=== PATIENT | female | born 1995 | race Two or more races ===

== ENCOUNTER 2022-04-04 05:53 | Emergency (ER) | payer MEDICAID ==
[~2022-04-04] VITALS: Ht 160 cm; Wt 68.0 kg
[2022-04-04 06:07] VITALS: BP 114/78
[2022-04-04 06:53] LABS: Urine WBC None Seen /hpf (0 - 5)
[2022-04-04 07:12] LABS: Potassium 3.5 mmol/L (3.5-5.1)
[2022-04-04 07:13] LABS: Salicylate < 1.7 mg/dL (2.8-20.0)
[2022-04-04 07:17] LABS: Basophils # (auto) 0.1 10 ^3/uL (0-0.2); Basophils % (auto) 0.8 % (0.0-2.0); Eosinophils # (auto) 0 10 ^3/uL (0-0.8); Eosinophils % (auto) 0.6 % (0.0-7.0); Hematocrit 37.2 % (36.0-46.0); Hemoglobin 12.4 g/dL (12.2-16.2); Lymphocytes # (auto) 1.8 10 ^3/uL (0.4-5.4); Lymphocytes % (auto) 25.9 % (10.0-50.0); Mean Corpuscular Hemoglobin 28.8 pg (28.0-32.0); Mean Corpuscular Hgb Conc. 33.2 g/dL (32.0-36.0); Mean Corpuscular Volume 86.8 fL (80.0-100.0); Monocytes # (auto) 0.3 10 ^3/uL (0-1.3); Monocytes % (auto) 4.6 % (0.0-12.0); Neutrophils # (auto) 4.8 10 ^3/uL (1.6-8.6); Neutrophils % (auto) 68.1 % (37.0-80.0); Red Blood Cells 4.29 10^6/uL (4.0-5.20); Red Cell Distribution Width 14.8 % (11.8-14.3); White Blood Cell 7.1 10^3/uL (4.4-10.8)
[2022-04-04 07:19] LABS: Albumin 3.8 g/dL (3.4-5.0); BUN/Creatinine Ratio 20.9; Bilirubin, Total 0.2 mg/dL (0.2-1.0); Calcium 8.5 mg/dL (8.5-10.1); Total Protein 7.5 g/dL (6.4-8.2)
[2022-04-04 07:21] LABS: Amphetamine Screen, Urine NEGATIVE (NEGATIVE); Barbiturate Scree,Urine NEGATIVE (NEGATIVE); Benzodiazephine Screen, Urine NEGATIVE (NEGATIVE); Cannabinoid Screen, Urine NEGATIVE (NEGATIVE); Cocaine Screen, Urine NEGATIVE (NEGATIVE); Opiate Scree,Urine NEGATIVE (NEGATIVE); Phencyclidine Screen, Urine NEGATIVE (NEGATIVE)
[2022-04-04 08:07] LABS: Acetaminophen < 2.0 ug/mL (10-30)
[2022-04-04 08:08] LABS: Urine Bacteria NONE SEEN /hpf (None Seen); Urine Blood Negative /uL (Negative); Urine Specific Gravity 1.003 (1.001-1.035)
== END 2022-04-04 07:41 | disposition left against medical advice (07) ==
LOC: EDUNIT# 05:53 → EDBD 05:53 → ER 05:53
DX: R44.3 Hallucinations, unspecified (principal); R94.31 Abnormal electrocardiogram [ECG] [EKG]; Z53.21 Procedure and treatment not carried out due to patient leaving prior to being seen by health care provider
CPT/HCPCS: 36415; 80053; 80307; 80329; 81001; 84484; 85025; 93005

== ENCOUNTER 2022-07-28 01:29 | Emergency (ER) | payer MEDICAID ==
[~2022-07-28] VITALS: Ht 160 cm; Wt 68.2 kg
[2022-07-28 01:49] VITALS: BP 117/66
[2022-07-28] MEDS ORDERED: KETOROLAC TROMETH 60MG/2ML VIAL IM ONE (02:15)
[2022-07-28] MEDS ORDERED: DexAMETHasone SOD PHOS 10MG/1ML VIAL INJ IM ONE (02:15)
== END 2022-07-28 02:21 | disposition home or self-care (01) ==
LOC: ER 01:31
DX: R51.9 Headache, unspecified (principal); F17.210 Nicotine dependence, cigarettes, uncomplicated; F12.10 Cannabis abuse, uncomplicated; Z88.1 Allergy status to other antibiotic agents

== ENCOUNTER 2023-05-30 16:32 | Emergency (ER) | payer SELFPAY ==
[~2023-05-30] VITALS: Ht 160 cm; Wt 71.7 kg
[2023-05-30 17:00] VITALS: BP 115/70; RESP 16; O2SAT 97
[2023-05-30 17:16] LABS: Basophils # (auto) 0.1 10 ^3/uL (0-0.2); Basophils % (auto) 0.8 % (0.0-2.0); Eosinophils # (auto) 0.3 10 ^3/uL (0-0.8); Eosinophils % (auto) 3.8 % (0.0-7.0); Hematocrit 40.9 % (36.0-46.0); Hemoglobin 13.9 g/dL (12.2-16.2); Lymphocytes % (auto) 43.9 % (10.0-50.0); Mean Corpuscular Hemoglobin 30.4 pg (28.0-32.0); Mean Corpuscular Volume 89.5 fL (80.0-100.0); Monocytes # (auto) 0.6 10 ^3/uL (0-1.3); Monocytes % (auto) 6.3 % (0.0-12.0); Neutrophils # (auto) 4.1 10 ^3/uL (1.6-8.6); Neutrophils % (auto) 45.2 % (37.0-80.0); Nucleated Red Blood Cells % 0.2 %; Red Blood Cells 4.57 10^6/uL (4.0-5.20); Red Cell Distribution Width 13.2 % (11.8-14.3)
[2023-05-30 17:25] LABS: Albumin 3.8 g/dL (3.4-5.0); Calcium 8.8 mg/dL (8.5-10.1); Potassium 3.6 mmol/L (3.5-5.1)
[2023-05-30 17:29] LABS: BUN/Creatinine Ratio 19.4 (10.0-20.0); Bilirubin, Total 0.4 mg/dL (0.2-1.0)
[2023-05-30 19:16] VITALS: PULSE 79
== END 2023-05-31 02:15 | disposition left against medical advice (07) ==
LOC: ER 16:32
DX: R42 Dizziness and giddiness (principal); F17.210 Nicotine dependence, cigarettes, uncomplicated; F10.90 Alcohol use, unspecified, uncomplicated; F12.90 Cannabis use, unspecified, uncomplicated
CPT/HCPCS: 36415; 71045; 80053; 84484; 85025; 93005

== ENCOUNTER 2024-05-28 19:27 | Emergency (ER) | payer MEDICAID ==
[~2024-05-28] VITALS: Ht 160 cm; Wt 72.2 kg
[~2024-05-28 19:27] MED LIST: ACET500T58 PO; AZIT-185 PO; IBUP-1455 PO
[2024-05-28 19:33] VITALS: BP 109/64; PULSE 70; RESP 18; O2SAT 97
== END 2024-05-28 21:34 | disposition left against medical advice (07) ==
LOC: ER 19:27
DX: R05.9 Cough, unspecified (principal); J02.9 Acute pharyngitis, unspecified; R51.9 Headache, unspecified; Z53.21 Procedure and treatment not carried out due to patient leaving prior to being seen by health care provider

== ENCOUNTER 2024-07-07 07:39 | Emergency (ER) | payer MEDICAID ==
[~2024-07-07] VITALS: Ht 160 cm; Wt 73.9 kg
[2024-07-07] MEDS: LORazepam 2MG/ML-1ML VIAL IV ONE (08:49)
[2024-07-07] MEDS: SODIUM CHLORIDE 0.9% 1,000 ML IV ONE ×2 (08:49)
[2024-07-07 09:29] VITALS: BP 114/60; PULSE 66; RESP 18; TEMP 98; O2SAT 98
[2024-07-07 10:17] LABS: Amphetamine Screen, Urine Neg (NEGATIVE); Barbiturate Scree,Urine Neg (NEGATIVE); Benzodiazephine Screen, Urine Neg (NEGATIVE); Cannabinoid Screen, Urine Pos (NEGATIVE); Cocaine Screen, Urine Neg (NEGATIVE); Opiate Scree,Urine Neg (NEGATIVE); Phencyclidine Screen, Urine Neg (NEGATIVE)
[2024-07-07] MEDS ORDERED: NITROGLYCERIN 0.4 MG SL TAB SL PRN (11:00)
== END 2024-07-07 10:51 | disposition left against medical advice (07) ==
LOC: ER 07:39
DX: F10.239 Alcohol dependence with withdrawal, unspecified (principal); F17.210 Nicotine dependence, cigarettes, uncomplicated; F12.10 Cannabis abuse, uncomplicated; Z88.0 Allergy status to penicillin; Z79.899 Other long term (current) drug therapy; Z88.1 Allergy status to other antibiotic agents; Y90.8 Blood alcohol level of 240 mg/100 ml or more
CPT/HCPCS: 36415; 80307; 80320; 96360; 96361; 99283; J2060; J7030